=== PATIENT | male | born 1985 | race Caucasian/White ===

== ENCOUNTER 2021-09-05 04:38 | Emergency (ER) | payer SELFPAY ==
[~2021-09-05 04:38] MED LIST: FLEXERIL 10 MG10 MG PO; IBUPROFEN600 MG PO
[2021-09-05] MEDS ORDERED: IBUPROFEN600 MG PO (05:53)
== END 2021-09-05 06:10 | disposition home or self-care (01) ==
LOC: ER1 04:38
DX: S83.92XA Sprain of unspecified site of left knee, initial encounter (principal); W01.0XXA Fall on same level from slipping, tripping and stumbling without subsequent striking against object, initial encounter; Y92.9 Unspecified place or not applicable; Y99.0 Civilian activity done for income or pay
CPT/HCPCS: 29515; 73564; 99283